=== PATIENT | male | born 1950 | race Caucasian/White ===

== ENCOUNTER → 2024-01-06 11:46 | Outpatient (REF) | payer OTHER, SELFPAY | LOC: HWRAD 11:46 | PROVIDERS: ATTENDING PHYSICIAN Internal Medicine | DX: M54.32 Sciatica, left side (principal); M70.41 Prepatellar bursitis, right knee | CPT/HCPCS: 72110; 73564 ==

== ENCOUNTER → 2025-01-25 06:57 | Outpatient (REF) | payer OTHER, SELFPAY | LOC: RAD 06:57 | PROVIDERS: ATTENDING PHYSICIAN Podiatrist; FAMILY PHYSICIAN Internal Medicine | DX: M79.672 Pain in left foot (principal) | CPT/HCPCS: 93922; 93925 ==

== ENCOUNTER → 2025-02-21 07:55 | Outpatient (REF) | payer OTHER, SELFPAY | LOC: HWRCS 07:55 | PROVIDERS: ATTENDING PHYSICIAN Internal Medicine | DX: I34.0 Nonrheumatic mitral (valve) insufficiency (principal) | CPT/HCPCS: 93306 ==

== ENCOUNTER → 2025-07-11 09:14 | Outpatient (REF) | payer OTHER, SELFPAY | LOC: PAVMRI 09:14 | PROVIDERS: ATTENDING PHYSICIAN Podiatrist; FAMILY PHYSICIAN Internal Medicine | DX: M79.671 Pain in right foot (principal); M84.371A Stress fracture, right ankle, initial encounter for fracture | CPT/HCPCS: 73721 ==

== ENCOUNTER 2025-07-18 06:31 | Day surgery (SDC) | payer OTHER, SELFPAY | END 2025-07-18 09:06 | disposition home or self-care (01) | LOC: GI 06:31 | PROVIDERS: ATTENDING PHYSICIAN Specialist; FAMILY PHYSICIAN Internal Medicine | DX: Z12.11 Encounter for screening for malignant neoplasm of colon (principal); D12.3 Benign neoplasm of transverse colon; Z86.0101 Personal history of adenomatous and serrated colon polyps | CPT/HCPCS: 45380; 88305 ==